=== PATIENT | male | born 1955 | race Caucasian/White ===

== ENCOUNTER → 2020-02-12 10:16 | Outpatient (CLI) | payer OTHER, SELFPAY ==
[2020-02-13 12:52] LABS: COVID19 Sendout Not Detected (Not Detect)
== END ==
PROVIDERS: Visit Provider Physician Assistant
DX: Z11.9 Encounter for screening for infectious and parasitic diseases, unspecified (principal)
CPT/HCPCS: 87635

== ENCOUNTER 2020-02-15 08:28 | Inpatient (IN) | payer OTHER, SELFPAY ==
[2020-02-08 08:49] VITALS: BMI 30.1
[2020-02-15] VITALS (18 sets, daily range): BP systolic 133–191; BP diastolic 76–117; PULSE 72–89; RESP 12–78; TEMP 36–36.5; O2SAT 94–98; BMI 31.3
--- NOTE | 2020-02-15 | DI.RAD.S_ITS ---
PROCEDURE: XR CERVICAL SPINE 2V OR 3V INDICATIONS: C34 45 ANTERIOR CERVICAL DISCECTOMY AND FUSION W/ BONE GRAFT TECHNIQUE: 2 operative view(s) of the cervical spine were acquired. COMPARISON: None. FINDINGS: AP and lateral cervical spine operative films demonstrate ACDF at C3-C4 and C4-C5 with interbody fusion material placed as well. There is no radiographic evidence of complications. IMPRESSION: Operative imaging utilized for performance of ACDF at C3-C4 and C4-C5. Dictated by: Christiano Hector M.D. on 02/15/2020 at 13:15 Approved by: Christiano Hector M.D. on 02/15/2020 at 13:16
[2020-02-15] MEDS: LACTATED RINGERS 1,000 ML 42 ML IV (09:35)
--- NOTE | 2020-02-15 09:52 | PM.PREOP ---
Pre-operative Note COVID-19 COVID-19 status: Negative Result date/Date tested (Pos, Neg/Pending): 02/12/20 Interval Note History & Physical reviewed/Exam performed by Physician: Yes Changes to H&P: No
[2020-02-15] MEDS: CLINDAMYCIN 900 MG/50 ML PIGGYBACK 50 MG IV ×2 (10:32→18:05)
--- NOTE | 2020-02-15 11:10 | SUR.OPER ---
Supine, head on gel donut. Arms padded with gel pads, tucked at sides, towel roll under shoulders. Safety belt at thigh. Legs uncrossed.
[2020-02-15] MEDS: THROMBIN (RECOMBINANT) 5,000 UNIT VIAL 5000 UNIT TOP (11:27)
[2020-02-15] MEDS: BUPIVACAINE 0.25% W/ EPI 30 ML VIAL 60 ML INJ (11:27)
[2020-02-15] MEDS: SODIUM CHLORIDE 0.9% 1,000 ML, GENTAMICIN 80 MG IRR (11:28)
--- NOTE | 2020-02-15 13:03 | P.OP_ITS ---
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 He had failed conservative management and requested operative intervention. Risks and benefits of surgery were discussed and appropriate consents were obtained. Surgeon: Allan Weeks Network Contract Manager: Gypsy Sims Anesthesia Type: General Operative Notes Findings: None Closure Type: primary Specimen(s): none sent Prosthetic devices, grafts, tissues, transplants, or devices: David TRISH-C Estimated Blood Loss (mL): 5 Procedure in detail: Patient was brought to the operating room and intubated on the table. A time-out was performed. Preoperative antibiotics were given. The neck was prepped and draped in the standard sterile fashion. Using a skin fold, we made a 3 cm oblique incision through his old right-sided incision. We used Bovie to go through the platysma and then did a standard anterolateral blunt dissection down to the precervical fascia. Fascia was nicked and elevated up. We found his old plate needs this for localization. We then subperiosteally elevated up the longus colli muscles around the plate and at the next 2 disc levels. Self-retaining retractors were placed. We brought in the microscope. We started working on the plate removal. He had heavy amounts of bone growth completely covering his old plate and screws. We came down the bur to start this and then we used a curette once we came down to the actual level of the screws. We then had used a curette going inside the screw head but there is still bone inside there. We were unable to use the standard removal screwdriver. We then began using some EMT screwdrivers and finally were able to get a flat blade ENT screwdriver into the screw head and backed out the 4 inner set screws and then the main screws. A combination of osteotome and Rusty were used to remove the plate. The [place] pins were placed around C3-4. A scalpel used to perform an annulotomy. We then used a combination of pituitaries and curettes and Kerrison to perform a complete anterior diskectomy at C3-4. We used the bur to take down the posterior osteophytes. We took down the PLL and used Kerrison to remove any posterior disc material and osteophytes. At the end we could from the nerve hook cephalad caudally and out the foramen and everything was opened. A small stab incision was made over the left anterior iliac crest. A Jamshidi needle was advanced into the pelvis and 2 mL of bone marrow was aspirated. We then used the trials. We then packed a 14 x 17 x 5 mm TRISH-C cage with Primagen bone graft and the iliac crest harvest. The cage was placed under fluoroscopic guidance. We then placed our two locking plates. The self- retaining retractors and [place] pins were then moved down to C4-5. Again a complete diskectomy was performed at C4-5. We took down the PLL and removed all the posterior osteophytes and disc material. A nerve hook confirmed everything was decompressed. We trialed and placed another 14 x 17 x 5 mm cage with bone graft for the anterior fusion at C4-5. The wound was irrigated. The retractors removed and final x-rays taken. The wound was inspected. There was no bleeding. The carotid was beating nicely. The platysma was closed. The superficial was closed. The skin was closed. A sterile dressing was placed. They were then extubated and brought to recovery room with no complications. Complications: none Post-operative Condition: stable Disposition: PACU Plan for aftercare: Overnight admission. Up with PT.
[2020-02-15] MEDS: HYDROMORPHONE 2 MG INJ IV ×4 (13:30→13:54)
[2020-02-15] MEDS: OXYCODONE/ACETAMINOPHEN 5/325 TABLET 1 TAB PO ×2 (13:38→14:07)
[2020-02-15] MEDS: LACTATED RINGERS 1,000 ML 125 ML IV ×2 (14:30→22:55)
--- NOTE | 2020-02-15 15:04 | PC.NURSE ---
Postop Note Pt arrived to room 224 at 1430. Alert and oriented x3. Received 2 tabs Percocet in PACU prior to transfer. Soft collar in place with gauze dressing C/D/I, small dressing to lower right side C/D/I. RA, denies nausea. Oriented to room and to call light/bed/tv controls, call light within reach. Last void 0730 per pt before surgery. Urinal at bedside. Belongings at bedside, declines to lock up valuables.
[2020-02-15] MEDS: CELECOXIB 200 MG CAPSULE 400 MG PO (15:22)
[2020-02-15] MEDS: METHYLPHENIDATE 5 MG TABLET 10 MG PO ×2 (15:22→20:42)
[2020-02-15] MEDS: HYDROMORPHONE 4 MG TABLET PO ×3 (15:45→23:51)
--- NOTE | 2020-02-15 16:59 | PT.IIE ---
Current Diagnoses Other spondylosis with myelopathy, cervical region (02/15/20) Other cervical disc displacement, unspecified cervical region (02/15/20) Strain of muscle, fascia and tendon at neck level, initial encounter (02/15/20) Arthrodesis status (02/15/20) Surgery Performed Operation Date: 02/15/20 11:15 Actual Procedures p C34 & C45 anterior cervical discectomy & fusion w/bone graft,removal of old cervical plate - Allan Weeks MD Surgical History (Last Updated 02/08/20 @ 09:26 by Tish Hwang RN) H/O cervical spinal arthrodesis (Acute 2000) History of surgical removal of pilonidal cyst (Acute 1986) History of tonsillectomy and adenoidectomy (Acute) Hx of cholecystectomy (Acute) Hx of laminectomy (Acute ~2015) Hx of lithotripsy (Acute) Hx of resection of stomach (Acute 2013) Hx of tooth extraction (Acute ~12/2019) Hx of vagotomy (Acute 1990) Medical History (Last Updated 02/08/20 @ 09:23 by Tish Hwang RN) Anxiety (Acute) Arthritis (Acute) Robin's esophagus (Acute) Esophageal hernia (Acute) GERD (gastroesophageal reflux disease) (Acute) GIST (gastrointestinal stroma tumor), malignant, colon (Acute 2013) History of anemia (Acute) HTN (hypertension) (Acute) Kidney stones (Acute) GINO treated with BiPAP (Acute) Pinched nerve in neck (Acute) Prostate cancer (Acute ~2015) PTSD (post-traumatic stress disorder) (Acute) Sciatica (Acute) Physical Therapy Inpatient Evaluation/Re-Eval M1 PT/OT-IP Prior Functional Status Start: 02/15/20 15:43 Freq: NEEDED Status: Active Protocol: Document 02/15/20 16:37 AW (Rec: 02/15/20 16:59 AW [id number]) Medical Review Prior Functional Status Medical History Reviewed Yes Communication WNL. Pt is a verbose and efficient verbal communicator. Mobility and Gait IND without AD Activities of Daily Living and IADL's IND Social History Household Members none Living Arrangements Apartment/Condo Number of Floors (Floors) One Floor Number of Stairs To Enter/Railing? Pt lives in a first floor apartment with level entry. 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 M2 PT-IP Current Condition Start: 02/15/20 15:43 Freq: NEEDED Status: Active Protocol: Document 02/15/20 16:37 AW (Rec: 02/15/20 16:59 AW [id number]) Physical Therapy Current Condition Current Condition Evaluation Date 02/15/20 Treatment Diagnosis C3-4 C4-5 ACDF; impaired mobility Onset Date 02/15/20 Precautions Cervical Spine Precautions Soft Collar for Comfort Brace soft collar for comfort M3 PT-IP Subjective Start: 02/15/20 15:43 Freq: NEEDED Status: Active Protocol: Document 02/15/20 16:37 AW (Rec: 02/15/20 16:59 AW [id number]) Subjective Physical Therapy Visit Type Type Initial Evaluation Visit Start Time 16:12 Visit Stop Time 16:35 Total Visit Minutes 23 Physical Therapy Visit Comments Patient Comments Pt reports sore, raspy throat but is otherwise feeling good and ready to work with PT Patient Goals Pt plans to discharge to home when stable Therapy Pain Assessment Pain When Pain Assessed At Rest Pain Present Pain Present Pain Reported Location anterior neck Intensity 3 Scale Used Numeric (0 - 10) Pain Management Techniques Timing of Activity with Medications M4 PT-IP Mobility and Gait Start: 02/15/20 15:43 Freq: NEEDED Status: Active Protocol: Document 02/15/20 16:37 AW (Rec: 02/15/20 16:59 AW [id number]) PT-Bed Mobility Assessment Supine to Sit Supine to Sit Independent Scooting Scooting to Edge of Bed Independent PT-Transfer Assessment Sit to and From Stand Sit to and from Stand Independent Equipment Transfer Assistive Device Gait Belt Orthotic/Prosthetic Devices or Brace: Yes Transfers Transfer Destination Chair Transfer Technique pt ambulated IND Transfer Ability Level of Assist Independent Comments Mobility Comments Pt was on the bed upon PT arrival. BP was 153/93 HR 81. He completed supine to sit independently and stood without AD IND. He proceeded to ambulate around the unit a total of 250 feet SBA and then transferred to the chair in his room IND. Pt had minimal pain complaints. He was left in the chair with call light and all needs within reach. He verbally agreed to call for SBA if needing to get out of the chair. Gait Assessment Gait Gait Assistance Required: Standby Assistance Distance (Feet) 250 Assistive Devices Assistive Device None,Gait Belt Orthotic/Prosthetic Devices or Brace: Yes Gait Deviations General Gait Pattern Within Normal Limits,Decreased Feet Clearance Comments Gait Comments Pt ambulated with very slight unsteadiness but he had no apparent LOB. Pt states balance is within normal limits compared with his baseline. Stair Climbing Assessment Comments Stair Climbing Comments Not assessed. No stairs at home. PT-Balance Assessment Sitting Balance and Reactions Static Sitting Balance Ability Normal Dynamic Sitting Balance Ability Normal Standing Balance and Reactions Static Standing Balance Ability Normal Dynamic Standing Balance Ability Good M5 PT-IP Objective Assessments Start: 02/15/20 15:43 Freq: NEEDED Status: Active Protocol: Document 02/15/20 16:37 AW (Rec: 02/15/20 16:59 AW [id number]) Orientation Orientation/Cognition Level of Alertness Alert Orientation Name,Day of Week,Place, Situation Language Function Ability No Deficits Noted Safety Awareness Understands Safety Issues Memory Description No Deficits Noted Gross Range of Motion Upper Extremity ROM Assessment Within Functional Limits Lower Extremity ROM Assessment Within Functional Limits Strength Upper Extremity Strength Assessment Within Functional Limits Lower Extremity Strength Assessment Within Functional Limits Coordination Assessment Gross Coordination Gross Coordination WNL Sensation Assessment Sensation Gross Sensation Left UE Impaired Light Touch Impaired Sensation Description Tingling Comments Sensation Comments Pt reports reduced tingling sensation to right elbow, forearm, and ulnar digits ( reduced compared with recent baseline). M6 PT-IP Treatment Start: 02/15/20 15:43 Freq: NEEDED Status: Active Protocol: Document 02/15/20 16:37 AW (Rec: 02/15/20 16:59 AW [id number]) Physical Therapy Treatment Education Education Provided Precautions,Post-Op Packet, Safety Other Treatments Other Treatment Performed Provided education on donning and doffing the soft collar with mirror for visual feedback. Also discussed and provided handout for swallow function after neck surgery. M7 PT-IP Assessment and Plan Start: 02/15/20 15:43 Freq: NEEDED Status: Active Protocol: Document 02/15/20 16:37 AW (Rec: 02/15/20 16:59 AW [id number]) PT Summary Assessment and Plan Potential Rehabilitation Potential Excellent Summary Impairments Pain,ROM,Balance Assessment Summary Kyler is a 64 yo man seen for PT evaluation on POD0 following C3-4 C4-5 ACDF. He is independent in all regards at baseline. On evaluation, pt completed all mobility independently except for gait which required SBA due to mild unsteadiness attributable to pain medication. Pt is aware of this limitation and agrees to call nursing for mobility SBA. No acute PT needs identified. Pt is cleared to ambulate the halls with nursing. PT remains available to re-consult if pt condition changes. Frequency of Treatment Frequency Of Treatment Discharge Recommendations To Nursing Amount of Assist Needed Standby Assistance Discharge Recommendations PT Discharge Recommendations Home Transportation Needs at Discharge Private Vehicle
[2020-02-15] MEDS: DEXAMETHASONE 4 MG/ML VIAL IV ×2 (18:05→23:51)
[2020-02-15] MEDS: HYDROMORPHONE 0.5 MG INJ IV ×2 (18:05→22:55)
[2020-02-15] MEDS: CELECOXIB 200 MG CAPSULE PO (20:40)
[2020-02-15] MEDS: DOCUSATE 100 MG CAPSULE PO (20:40)
[2020-02-15] MEDS: PANTOPRAZOLE 20 MG TABLET PO (20:41)
[2020-02-15] MEDS: GABAPENTIN 300 MG CAPSULE PO (20:41)
[2020-02-15] MEDS: SENNOSIDES 8.6 MG TABLET 17.2 MG PO (20:41)
[2020-02-15] MEDS: FLUoxetine 20 MG CAPSULE 40 MG PO (20:42)
[2020-02-15] MEDS: QUETIAPINE 25 MG TABLET PO (20:42)
--- NOTE | 2020-02-16 00:28 | PC.NURSE ---
Addendum entered by Codi Kim R.N. 02/16/20 05:07: Complains of 8/10 anterior neck pain so medicated with Vistaril + IV Dilaudid Original Note: 0004 Patient seen and assessed. Is alert and oriented. Dressing to anterior neck is CDI; wearing soft cervical collar. Complains of 7/10 throbbing pain and was medicated with Dilaudid. Does state he has a mildly sore throat but denies swallowing difficulty. Breath souns CTA with RA sat of 95%. HRR. Denies nausea. BT hypoactive but states he has passed flatus. Had lithotripsy earlier this year and states since then has had some intermittent burning, frequency and urgency at night. Is able to move himself and out of bed with SBA. States he still has some chronic numbness in palm of left hand as well as in left 4th/5th fingers. Fall risk score is moderate; verbalizes that he will call for assistance prior to getting up. Currently sitting up in chair so SCD's are not on.
[2020-02-16] MEDS: CLINDAMYCIN 900 MG/50 ML PIGGYBACK 50 MG IV (01:54)
[2020-02-16] MEDS: HYDROMORPHONE 4 MG TABLET PO ×3 (03:00→12:04)
[2020-02-16 04:42] VITALS: BP 149/94; PULSE 75; RESP 16; TEMP 36; O2SAT 96
[2020-02-16] MEDS: hydrOXYzine pamoate 25 MG CAPSULE PO (04:56)
[2020-02-16] MEDS: HYDROMORPHONE 0.5 MG INJ IV ×3 (05:05→13:45)
[2020-02-16] MEDS: DEXAMETHASONE 4 MG/ML VIAL IV ×2 (06:00→12:04)
--- NOTE | 2020-02-16 07:28 | P.PN_ITS ---
Subjective Subjective Date Patient Seen: 02/16/20 Time Patient Seen: 07:28 Interval history: Pain is quite severe about 8/10 mostly in the left upper shoulder and lower cervical spine. A little tingling in the left thumb but otherwise arms are fine. Exam Vital Signs (past 8 hours): - 02/15/20 23:43 02/16/20 04:42 Temperature 96.9 F L 96.8 F L Pulse Rate 86 75 Respiratory Rate 18 16 Blood Pressure 136/85 149/94 H Pulse Oximetry 95 96 Oxygen Delivery Method Room Air Oxygen Flow Rate 0 Const Orientation: alert and oriented x3 Back/Spine/Pelvis Other: CDI. 5/5 motor both upper extremities except for 4/5 left box repairer Assessment & Plan Post-op Postoperative Procedures: Procedures Operation Date: 02/15/20 11:15 Actual Procedures Side Surgeon p C34 & C45 anterior cervical discectomy & fusion w/bone graft,removal of old cervical plate Allan Weeks MD he is having fair amount of pain. He is still requiring IV supplementation for pain control. I anticipate him needing to stay 1 more day and discharging home tomorrow. Get up and move with physical therapy today. Quality VTE Deep Vein Thrombosis/Pulmonary Embolism Present on Admission: No
[2020-02-16 08:05] VITALS: BP 143/84; PULSE 67; RESP 16; TEMP 36.4; O2SAT 95
[2020-02-16] MEDS: METHYLPHENIDATE 5 MG TABLET 10 MG PO ×3 (08:36→20:40)
[2020-02-16] MEDS: diazePAM 5 MG TABLET 10 MG PO (08:36)
[2020-02-16] MEDS: PANTOPRAZOLE 20 MG TABLET PO ×2 (08:37→20:40)
[2020-02-16] MEDS: DOCUSATE 100 MG CAPSULE PO ×2 (08:37→20:40)
[2020-02-16] MEDS: CELECOXIB 200 MG CAPSULE PO ×2 (08:37→20:44)
[2020-02-16] MEDS: SODIUM CHLORIDE 0.9% FLUSH 10 ML IV ×5 (08:37→20:44)
--- NOTE | 2020-02-16 08:58 | OT.IP.EVAL ---
Current Diagnoses Other spondylosis with myelopathy, cervical region (02/15/20) Other cervical disc displacement, unspecified cervical region (02/15/20) Strain of muscle, fascia and tendon at neck level, initial encounter (02/15/20) Arthrodesis status (02/15/20) Surgery Performed Operation Date: 02/15/20 11:15 Actual Procedures p C34 & C45 anterior cervical discectomy & fusion w/bone graft,removal of old cervical plate - Allan Weeks MD Past Medical History (Last Updated 02/08/20 @ 09:23 by Tish Hwang RN) Anxiety (Acute) Arthritis (Acute) Robin's esophagus (Acute) Esophageal hernia (Acute) GERD (gastroesophageal reflux disease) (Acute) GIST (gastrointestinal stroma tumor), malignant, colon (Acute 2013) History of anemia (Acute) HTN (hypertension) (Acute) Kidney stones (Acute) GINO treated with BiPAP (Acute) Pinched nerve in neck (Acute) Prostate cancer (Acute ~2015) PTSD (post-traumatic stress disorder) (Acute) Sciatica (Acute) Surgical History (Last Updated 02/08/20 @ 09:26 by Tish Hwang RN) H/O cervical spinal arthrodesis (Acute 2000) History of surgical removal of pilonidal cyst (Acute 1986) History of tonsillectomy and adenoidectomy (Acute) Hx of cholecystectomy (Acute) Hx of laminectomy (Acute ~2015) Hx of lithotripsy (Acute) Hx of resection of stomach (Acute 2013) Hx of tooth extraction (Acute ~12/2019) Hx of vagotomy (Acute 1990) Occupational Therapy Inpatient Evaluation/Re-Eval M1 PT/OT-IP Prior Functional Status Start: 02/16/20 10:40 Freq: NEEDED Status: Active Protocol: Document 02/16/20 08:58 [facility] (Rec: 02/16/20 11:09 [facility] [id number]) Medical Review Prior Functional Status Medical History Reviewed Yes Communication WNL. Pt is a talkative and efficient verbal communicator. Mobility and Gait IND without AD Activities of Daily Living and IADL's IND but would take longer due to his pain. Social History Household Members none Living Arrangements Apartment/Condo Number of Floors (Floors) One Floor Number of Stairs To Enter/Railing? Pt lives in a first floor apartment with level entry. 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 M2 OT-IP Current Condition Start: 02/16/20 10:40 Freq: Status: Active Protocol: Document 02/16/20 08:58 [facility] (Rec: 02/16/20 11:09 [facility] [id number]) Occupational Therapy Current Condition Current Condition Evaluation Date 02/16/20 Treatment Diagnosis Cervical disc herniation with myelopathy, C3-4, C4-5 ACDF Diagnosis Onset Date 02/15/20 Post Operative Precautions Cervical Spine Precautions Soft Collar for Comfort,No Heavy Lifting,Log Roll M3 OT- IP Subjective and Pain Start: 02/16/20 10:40 Freq: Status: Active Protocol: Document 02/16/20 08:58 [facility] (Rec: 02/16/20 11:09 [facility] [id number]) OT- Subjective Occupational Therapy Visit Type Type Initial Evaluation Visit Start Time 08:58 Visit Stop Time 09:54 Total Visit Minutes 56 Occupational Therapy Visit Comments Patient Comments Pt agreed to do OT eval. Patient/Caregiver Goals To go home when medically stable. OT Pain Assessment Pain When Pain Assessed At Rest Pain Present Pain Present Pain Reported Location anterior neck Intensity 8 Scale Used Numeric (0 - 10) M4 OT- IP ADL's Start: 02/16/20 10:40 Freq: Status: Active Protocol: Document 02/16/20 08:58 [facility] (Rec: 02/16/20 11:09 [facility] [id number]) OT JGE-Tafp-Nqiibld Comments OT Self-Feeding Comments Pt states throat feels sore while eating. Educated on swallowing information after sx from ACDF and encouraged pt to sit upright while eating and chew his food thoroughly. OT ADL-Grooming Comments OT Grooming Comments Educated to spit into a cup. OT ADL-Dressing General Eval Lower Body Dressing Ability Standby Assistance Comments OT Dressing Comments Pt after education able to madelyn/doff the soft collar on his own. Pt needing cues to sit to doff/doff his socks at this time. Able to show pt socks aid to increase the ease to madelyn/doff shoes. Pt would benefit from LB dressing equipment . To go over tomorrow again and issued to pt if still needed. OT ADL-Toileting General Evaluation Toileting Ability Independent OT ADL-Bathing Bathing Type Bathing Type Shower General Evaluation Bathing Ability Standby Assistance Devices Bathing Equipment Hand Held Shower Sprayer,Grab Bars Comments OT Bathing Comments Pt occasionally having to use grab bars for balance while standing to shower. Pt has a tub shower at home and suggested may benefit from a shower chair and a friend to be present when he showers as currently pt not thinking well . M5 OT- IP IADL's Start: 02/16/20 10:40 Freq: Status: Active Protocol: Document 02/16/20 08:58 [facility] (Rec: 02/16/20 11:09 [facility] [id number]) OT-Instrumental Activities of Daily Living Home Safety Awareness Home Safety Comments Pt a little groggy, trouble with short term memory and having trouble to recall his cervical precautions and if going home today , would need supervision . M6 OT- IP Functional Cognition Start: 02/16/20 10:40 Freq: Status: Active Protocol: Document 02/16/20 08:58 [facility] (Rec: 02/16/20 11:09 [facility] [id number]) Cognitive Factors Limiting Selfcare Function Cognitive Ability Level of Alertness Alert,Confusional State Patient Orientation Name,Place,Situation Attention Span Ability Capable of Focused Attention, Capable of Sustained Attention Ability to Follow Commands Able to Follow One Step Commands Memory Description Short Term Impaired Safety Awareness Decreased Ability to Apply Precautions Cognitive Comments Cognitive Assessment Comments Pt not thinking well and not remembering having seen the PT yesterday initially, did not remember that he was going to the sink to practice to madelyn/ doff his soft collar after just talking to the pt/ Pt needing cues to do log rolling for bed mobility needs. OT- Vision and Hearing OT- Vision Assessment Vision Assessment Comments Pt states is far sighted but does not have any glasses. M7 OT- IP Mobility and Balance Start: 02/16/20 10:40 Freq: Status: Active Protocol: Document 02/16/20 08:58 [facility] (Rec: 02/16/20 11:09 [facility] [email or web address]) OT- Bed Mobility Assessment Supine to Sit Supine to Sit Assist Standby Assistance OT-Transfer Assessment Sit to and From Stand Sit to and from Stand Independent Transfers Transfer Ability Standby Assistance Technique Transfer Destination Bed,Chair,Shower Stall,Toilet Transfer Technique Stand Step Pivot Devices Transfer Assistive Devices None,Gait Belt Comments Mobility Comments Distant SBA for mobility needs as pt a little forgetful and decreased safety awareness. OT- Gait Assessment Comments Gait Ability Comments distant SBA OT- Balance Assessment Sitting Balance and Reactions Static Sitting Balance Ability Normal Dynamic Sitting Balance Ability Normal Standing Balance and Reactions Static Standing Balance Ability Normal Dynamic Standing Balance Ability Good M8 OT- IP Objective Assessments Start: 02/16/20 10:40 Freq: Status: Active Protocol: Document 02/16/20 08:58 [facility] (Rec: 02/16/20 11:09 [facility] [email or web address]) OT-Muscle Tone Assessment Muscle Tone WNL Yes M9 OT- IP Assessment and Plan Start: 02/16/20 10:40 Freq: Status: Active Protocol: Document 02/16/20 08:58 [facility] (Rec: 02/16/20 11:09 [facility] [id number]) OT Summary Assessment and Plan Potential Rehabilitation Potential Good Analytic Complexity at Evaluation Low Summary OT Impairments Functional Cognition,Dressing, Toileting,Bathing,Activity Tolerance Progress Towards Goals Progressing Toward Goals,Slow Progress due to Cognition Assessment Summary Pt low complexity after s/p C3 -4, C4-5 ACDF with main barrier are decreased safety awareness and short term memory at this time. In addition he would benefit from LB dressing equipment and shower chair at home. OT to continue to see pt to continue to assess cognitive needs. Goals Self-Feeding Goal Independent Grooming Goal Independent Dressing Goal Independent Toileting Goal Independent Bathing Goal Independent Toilet Transfer Goal Independent Shower Transfer Goal Independent Patient/Caregiver Education Goal Demonstrate Post-Op Precautions Days to Meet Goals 3 Frequency of Treatment Frequency Of Treatment Once a Day Treatment Plan OT Treatment Plan ADL Training,Functional Cognition Training,Functional Mobility,Patient/Family Education,Discharge Planning Other Treatment Recommendations and Next SLUMS if stil not clearing for Treatment Focus cognition, re-practice LB dresing needs. Discharge Recommendations OT Discharge Recommendations Home with Assistance Home Equipment Needs Shower chair Transportation Needs at Discharge Private Vehicle
[2020-02-16] MEDS: HYDROMORPHONE 2 MG TABLET PO ×3 (09:02→20:40)
--- NOTE | 2020-02-16 10:24 | PC.NURSE ---
Patient, alert, oriented, rates pain to neck 8/10 given IVP dilaudid for break through pain. Patient showered with OT, tolerated well, ambulating well.
[2020-02-16 11:28] VITALS: BP 147/98; PULSE 69; RESP 16; TEMP 36.3; O2SAT 95
--- NOTE | 2020-02-16 11:38 | SLP.IPNOTE ---
Patient seen for swallow screen following ACDF surgery. Patient reported sore throat which is common after this procedure. Patient reported no swallowing difficulty since surgery. LOGGING TRACTOR OPERATOR observed patient consuming thin water by cup without any overt s/sx of aspiration. LOGGING TRACTOR OPERATOR provided patient with ACDF handout explaining changes in swallowing and voice. LOGGING TRACTOR OPERATOR reviewed handout and recommendations with patient who verbalized understanding of information. Patient is safe to advance diet as tolerated. A bedside swallow evaluation is not warranted at this time. Tarah Leigh MS, CF-LOGGING TRACTOR OPERATOR
--- NOTE | 2020-02-16 15:25 | CM.DANOTE ---
Discharge Planning/Care Management DCP: assessment: case received, EMR reviewed and discussed case in Team Rounds. Met now with pt and introduced self and role. Pt is a 64 year old female who admitted yesterday for a planned cervical spinal fusion. Payer: [facility] PCP: Sandra Oconnell Surgeon: Dr. Weeks Admission status: INPT: confirmed by UR RN. Pt clarifies his d/c plan: he says that Dr. Weeks expects he will be ready for a d/c to home setting by tomorrow. Pt is working with PT and OT. PLATINUMSMITH did clear pt for swallow. Pt says his friend Pavan Antunez: [phone] will be taking him home at d/c and assisting him prn as he recovers. Pavan also was the one who brought him here for his surgery. P: check in tomorrow and follow prn for d/c issues and options if these arise. CM Discharge Assessment Start: 02/16/20 15:22 Freq: Status: Active Protocol: Document 02/16/20 15:22 [facility] (Rec: 02/16/20 15:24 IT[facility] [id number]) Discharge Planning Assessment Advance Directives? No History Provided By Patient,Medical Record Prior Living Arrangements Apartment/Condo Household Members none Independent with ADL's Yes: pain limitations Is patient alert and oriented? 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 Preferred Name Don Patient Information Reviewed Via Phone Assessment Assessment Completed With Patient Comment Lab/EKG done per pt, not available, COVID screen @ Primary Care Provider Rajni Oconnell Seen Specialist in Last 12 Months Yes Specialist Seen Oncologist,Orthopedist, Urologist Primary Language Greenlandic Intermediate Frame Tender Required No Height 175.26 cm Weight 92.533 kg Body Mass Index (BMI) 30.1 Hearing Ability Normal Visual Assist None Dentition Type Teeth, Natural Present,Teeth, Missing Barriers to Learning None Hx Anesthesia Reactions No: Currently not using BiPAP Hx Family Anesthesia Reaction No Hx Malignant Hyperthermia No Hx Blood Transfusions Yes: 1990 r/t vagotomy Hx Blood Transfusion Reaction No Anesthesia Review Requested No alcohol intake current alcohol intake frequency a few times a month Smoking Status Former smoker how long ago did patient quit smoking Quit age 42 Substance Use Type marijuana Comment CBD/THC pills for pain Pain Present Pain Reported Musculoskeletal Symptoms Limited Range of Motion,Neck Pain,Numbness,Radiating Pain into Limb,Tingling History of Falling (Recent or History of No ) Patient is completely paralyzed or No completely immobile Mental Status Oriented to own ability Is patient on oxygen? No Does patient have CHOWDHURY/SOB No Hx Sleep Apnea Yes: Currently not using BiPAP CPAP/BIPAP use prescribed and used routinely Currently Taking a Beta Marisol No Can You Climb a Flight of Stairs Without Yes SOB Hx Chest Pain No Hx SOB No Hx Syncope or Dizziness No Anti-Coagulant Therapy No Has a Filler Picker No Cardiac Testing No Hx Pacemaker/ICD No Cardiac Clearance Received Not Applicable Diet Type At Home Regular dysphagia No Gastrointestinal Symptoms Reflux Bladder Pattern Nocturia Urinary Catheter Present No Hx Urinary Self Catheterization No Diabetes No Hx Drug Resistant Organism No Presence of External or Internal Medical Yes: Cervical hardware, BiPAP Devices Have you had any close contact with No someone diagnosed with COVID-19? Marital Status Lives With none Prior Living Arrangements Apartment/Condo Support System Friend(s) Does the Patient Have Assistance After Yes Surgery Patient Discharge Plan Description Return Home Comment Pt advised overnight length of stay per surgeon Feels Safe in Current Environment Yes Been Physically Hurt or Threatened By a No Person in Current Environment Do you have thoughts of harming yourself None or others? Are you currently considering suicide? No Do you have a plan to hurt yourself or No Plan others? Do You Have Any Spiritual Beliefs That No May Affect Your HC Choices? Do You Have Any Cultural Practices That No May Affect Your HC Choices? Comment Lamberto Who Can We Speak to About Patient's Care Family, friends Identifying Code for Release of Patient Declines to issue Information Health Care Proxy/Next of Kin Toan (sister) Health Care Proxy Emergency Contact Name Toan (sister) Emergency Contact Advance Directives? No Power of Wiener Packer Yes Power of Wiener Packer Name Toan (sister) Power of Wiener Packer PAC Instructions Bring CPAP/BIPAP,Durable medical equipment,Medications to take/avoid,Nasal antibiotic ,No ETOH/petroleum product on skin DOS,NPO,Post-op transportation,Pre-surgical wash,Sturdy shoes/comfortable clothes,Do not bring valuables and remove jewelry
[2020-02-16 15:28] VITALS: BP 161/102; PULSE 66; RESP 18; TEMP 35.9; O2SAT 98
[2020-02-16 20:18] VITALS: BP 153/101; PULSE 69; RESP 16; TEMP 36.3
[2020-02-16] MEDS: QUETIAPINE 25 MG TABLET PO (20:40)
[2020-02-16] MEDS: SENNOSIDES 8.6 MG TABLET 17.2 MG PO (20:40)
[2020-02-16] MEDS: FLUoxetine 20 MG CAPSULE 40 MG PO (20:40)
[2020-02-16] MEDS: GABAPENTIN 300 MG CAPSULE PO (20:40)
[2020-02-16 23:56] VITALS: BP 160/106; PULSE 66; RESP 18; TEMP 36.6; O2SAT 98
[2020-02-17] MEDS: HYDROMORPHONE 2 MG TABLET PO ×3 (00:10→09:41)
--- NOTE | 2020-02-17 02:18 | PC.NURSE ---
Addendum entered by Codi Kim R.N. 02/17/20 06:30: No difference noted in pain control when giving 2mg vs 4mg of po Dilaudid. Complains of 8/10 pain again at this time so medicated with 2mg Dilaudid. Addendum entered by Codi Kim R.N. 02/17/20 03:29: States pain is again 8/10 so medicated with 4mg of po Dilaudid. FLACC score is 1. Original Note: Patient alert and oriented. Breath sounds CTA with RA sat of 98%. HRR. BP elevated at 160/106 earlier but noted to be trending persistently high. Does have hx of HTN but is no longer taking medication for it; is asymptomatic so will continue to monitor and notify MD in a.m. unless condition changes. Denies nausea. BT present and is passing flatus. Voiding without dysuria, frequency or urgency; urine is clear robles. Up in room independently as now fall risk score is low. Refusing to wear SCD's so reminded to ankle wave. Earlier having 8/10 pain and was medicated with po Dilaudid; pain never improves better than 5-6/10 but FLACC score is 1. Dressing to neck is CDI; wearing soft cervical collar for comfort.
[2020-02-17] MEDS: HYDROMORPHONE 4 MG TABLET PO (03:24)
[2020-02-17 04:41] VITALS: BP 142/84; PULSE 62; RESP 18; TEMP 36.3; O2SAT 96
[2020-02-17 07:27] VITALS: BP 150/89; PULSE 71; RESP 18; TEMP 36.3; O2SAT 98
[2020-02-17] MEDS: DOCUSATE 100 MG CAPSULE PO (08:46)
[2020-02-17] MEDS: CELECOXIB 200 MG CAPSULE PO (08:46)
[2020-02-17] MEDS: diazePAM 5 MG TABLET 10 MG PO (08:46)
[2020-02-17] MEDS: SODIUM CHLORIDE 0.9% FLUSH 10 ML IV (08:47)
[2020-02-17] MEDS: METHYLPHENIDATE 5 MG TABLET 10 MG PO (08:47)
[2020-02-17] MEDS: PANTOPRAZOLE 20 MG TABLET PO (08:48)
--- NOTE | 2020-02-17 08:56 | PM.DS.1 ---
History of Present Illness History of Present Illness Date Patient Seen: 02/17/20 Time Patient Seen: 08:56 Chief complaint: Cervical Fusion Anterior Narrative: The history and physical is contained in the chart previously completed note. Please refer to that note for this information. Discharge Providers Provider Date of admission: 02/15/20 08:28 Discharge Date: 02/17/20 Primary care physician: Rajni Oconnell MD Consults: 02/15/20 09:42 Consult to Respiratory Therapy Evaluate & Treat Comment: Physician Instructions: Evaluate and treat 02/15/20 14:29 Consult to Occupational Therapy Evaluate & Treat Comment: Physician Instructions: Evaluate and treat Consult to Physical Therapy Evaluate & Treat Comment: Physician Instructions: Evaluate and Treat Discharge provider: Antonio Chaidez MD Summary Hospital Course Discharge Diagnosis: 1. Cervical spinal stenosis with myelopathy 2. Herniated nucleus pulposis 3. Status post prior cervical fusion Hospital Course: The patient was admitted to the hospital and taken directly to the operating room on February 15 2020. He underwent a C3 through 5 anterior cervical discectomy and fusion with removal of previous hardware. On postoperative day 1 he had significant pain control issues and was maintained in the hospital until postoperative day 2. He was stable on postop day 2 and ready for discharge home. Status at Discharge Cognitive/behavioral status at discharge: oriented Functional status at discharge: independent ambulation Overall status at discharge: patient is progressing back to baseline Time Spent with Patient Time spent: Less than 30 minutes Exam Vital Signs (past 8 hours): - 02/17/20 04:41 02/17/20 07:27 Temperature 97.3 F L 97.3 F L Pulse Rate 62 71 Respiratory Rate 18 18 Blood Pressure 142/84 H 150/89 H Pulse Oximetry 96 98 Oxygen Delivery Method Room Air Oxygen Flow Rate 0 Narrative Exam Narrative: Cervical wound is dressed with no drainage on the bandage. Light touch is intact in the upper and lower extremities throughout although subjectively slightly decreased in the tips of the fingers. He has been walking independently and has no evidence for extremity weakness. Discharge Assessment & Plan Assessment and Plan Assessment: Postoperative day 2 status post anterior cervical diskectomy and fusion and removal of prior hardware. Plan of Treatment: Discharge today. Follow up with Dr. Allan Weeks as scheduled. He has been given Dilaudid for pain control as well as Vistaril for muscle spasm. Discharge Plan Discharge Plan Patient Disposition: Home Discharge comment: Follow-up 1.[address] Weeks Discharge orders & Medications Prescriptions: New celecoxib [Celebrex] 200 mg Capsule 200 mg PO BID PRN (Reason: pain) Qty: 60 RF: 0 docusate sodium [DOK] 100 mg Capsule 100 mg PO BID PRN (Reason: constipation) Qty: 30 RF: 0 hydromorphone 2 mg Tablet See Rx Instructions .ROUTE .COMPLEX PRN (Reason: Pain, Severe (7-10)) Qty: 40 RF: 0 hydroxyzine pamoate 25 mg Capsule 25 mg PO Q4HR PRN (Reason: spasms) Qty: 20 RF: 0 Continued quetiapine 25 mg Tablet 25 - 50 mg PO BEDTIME RF: 0 methylphenidate HCl [Ritalin] 10 mg Tablet 10 mg PO TID RF: 0 omeprazole 20 mg Capsule,Delayed Release(Dr/Ec) 20 mg PO BID RF: 0 fluoxetine [Prozac] 40 mg Capsule 40 mg PO BEDTIME RF: 0 ondansetron 8 mg Tablet,Disintegrating 8 mg PO Q12H PRN (Reason: Nausea) RF: 0 diazepam [Valium] 10 mg Tablet 10 mg PO DAILY RF: 0 Follow up/Referrals: Rajni Oconnell MD [Primary Care Provider] - Allan Weeks MD [Physician] - 2 Weeks Discharge Health Status Multidrug resistant organism: No MDRO Diet/Activity/Treatments Diet: Diet as Tolerated and Regular Activity: Limited bending, twisting, 10 lb maximum lift Soft collar for comfort Skin/Wound/Dressing Care Report to your healthcare provider any signs of infection, such as:: chills, fever, night sweats, increased pain, unusual drainage and unusual redness Dressing: Keep dressing intact. May shower up to armpits. On Wednesday, May take down dressing and fully shower. Replaced with clean dry dressing when done. Visit Report/Discharge Packet Instructions: DI for Prescription Opioid Use, DI for Anterior Cervical Discectomy and Fusion Stand Alone Forms: Surgery Discharge Discharge Data Primary Care Provider: Rajni Oconnell Quality VTE Deep Vein Thrombosis/Pulmonary Embolism Present on Admission: No
--- NOTE | 2020-02-17 11:41 | PC.NURSE ---
Reviewed discharged instructions and return precautions with pt, went over home meds and gave pt new medications hard copies x4, pt has f/u apt with provider in 2 weeks, all pt belongings with pt, pt was taken by wheelchair by aid to meet his ride at ER entrance.
== END 2020-02-17 12:00 | disposition home or self-care (01) | DRG 473 ==
PROVIDERS: Admitting Provider Orthopaedic Surgery; PCP Student in an Organized Health Care Education/Training Program; Referring Provider Orthopaedic Surgery; Visit Provider Orthopaedic Surgery
PROC: 0RG20A0 Fusion of 2 or more Cervical Vertebral Joints with Interbody Fusion Device, Anterior Approach, Anterior Column, Open Approach (ICD-10-PCS; principal; 2020-02-15 11:15)
DX: M50.01 Cervical disc disorder with myelopathy, high cervical region (principal); M48.02 Spinal stenosis, cervical region; G47.30 Sleep apnea, unspecified; I10 Essential (primary) hypertension; K21.9 Gastro-esophageal reflux disease without esophagitis; D64.9 Anemia, unspecified; F32.9 Major depressive disorder, single episode, unspecified; Z85.46 Personal history of malignant neoplasm of prostate; Z87.891 Personal history of nicotine dependence; Z11.59 Encounter for screening for other viral diseases
CPT/HCPCS: 36592; 72040; 76000; 87635; 97161; 97165; 97530; 97535; C1776; J1100; J1170; J2250; J2405; J2704; J3010